=== PATIENT | female | born 1980 | race Caucasian/White ===

== ENCOUNTER 2023-07-12 15:48 | Outpatient (CLI) | payer MEDICAID | END 2023-07-12 23:59 | disposition home or self-care (01) | LOC: RAD 15:48 | PROVIDERS: ATTEND Nurse Practitioner Pediatrics | DX: M19.011 Primary osteoarthritis, right shoulder (principal); M25.511 Pain in right shoulder | CPT/HCPCS: 73030 ==

== ENCOUNTER 2023-10-15 18:00 | Emergency (ER) | payer MEDICAID ==
[~2023-10-15] VITALS: Ht 177.8 cm; Wt 122.5 kg
[2023-10-15 18:35] VITALS: BP 154/85; PULSE 90; RESP 19; O2SAT 96
[2023-10-15 19:39] LABS: STREP A SCREEN NEGATIVE (Neg)
[2023-10-15] MEDS ORDERED: AZIT250T PO (20:24)
[2023-10-15] MEDS ORDERED: PRED20TA PO (20:24)
[2023-10-15] MEDS: dexamethasone sod phosphate 10mg/ml inj PO STA (20:24)
[2023-10-15] MEDS ORDERED: ALBU8HFA INH (20:24)
[2023-10-15 20:35] VITALS: TEMP 97.8
== END 2023-10-15 20:37 | disposition home or self-care (01) ==
LOC: ER 18:00
DX: U07.1 COVID-19 (principal)
CPT/HCPCS: 36415; 87081; 87811; 87880; 99283; J1100

== ENCOUNTER 2024-08-13 05:55 | Outpatient (CLI) | payer MEDICAID ==
[~2024-08-13 05:55] MED LIST: AZIT250T PO
[2024-08-13] MEDS ORDERED: iohexol 300 MG/1 ML 50ml polymer ONE (06:26)
[2024-08-13] MEDS ORDERED: GADOTERATE MEGLUMINE 7.5 MMOL/15 ML VIAL IV ONE (06:26)
[2024-08-13] MEDS ORDERED: LIDOcaine 1%/PF 5ML 10 MG/ML VIAL ONE (06:26)
[2024-08-13] MEDS ORDERED: LIDOcaine 1% 30ml preserv. free vial ONE (06:26)
--- NOTE | 2024-08-13 09:19 | RADIOLOGY REPORT ---
CLINICAL INFORMATION: Right shoulder pain. TECHNIQUE: Multisequence multiplanar MR arthrogram images of the right shoulder were obtained after t he intra-articular injection of dilute gadolinium contrast under fluoroscopic guidance. Refer to the same-day arthrogram injection report for details concerning the contrast injection. COMPARISON: Correlation made to same day arthrogram injection images and prior radiographs dated 06/19. FINDINGS: Acromioclavicular joint: There is mild acromioclavicular hypertrophy and mild edema. There is Type 2 acromion. Small amount of fluid and contrast in the subacromial / subdeltoid bursa. Rotator cuff tendons: Tear of the distal supraspinatus tendon extending to the insertional footprint measuring up to 2 cm in greatest AP dimension and up to 1.6 cm in proximal to distal dimension with f ull-thickness or near full-thickness bursal surface component at the tear of the insertional footprin t and articular surface component at its proximal aspect, with full-thickness communication of contra st extending from the glenohumeral joint to the subacromial/subdeltoid bursa. Subscapularis and teres minor tendons are intact. Biceps tendon: No significant tendinosis. No evidence of attrition or tear. Labrum: Mild fraying of the posterior superior labrum. Bones: No fracture or focal marrow contusion. Muscles: Normal muscle bulk. No atrophy. Other: There is adequate distention of the joint with contrast. No loose bodies or significant synov itis. IMPRESSION: 1. Tear involving the distal supraspinatus tendon with bursal surface and articular surface component s of the tear, and demonstrating full-thickness communication, with contrast extending from the joint into the subacromial/subdeltoid bursa. 2. Mild acromioclavicular hypertrophy. 3. Likely mild fraying of the posterior superior labrum.
--- NOTE | 2024-08-13 09:30 | RADIOLOGY REPORT ---
ANGIO ARTHROGRAM (A) Date: 08/13/2024 07:14 AM Clinical History: PAIN IN RIGHT SHOULDER Comparison: None Procedure: Verbal and written informed consent were obtained from the patient for the procedure of RIGHT SHOULDE R fluoroscopically guided arthrogram, after the procedure, risks, and benefits of the procedure were explained to the patient. Risks include bleeding, infection, reaction to injected medications, and damage to surrounding anatomic structures. The patient's questions were answered. The patient's mos t recent medical history was reviewed. A time out was performed to verify the patient's name, date of , and correct location of the pro cedure, prior to initiation of the procedure. The patient was placed supine on the fluoroscopic table and the area overlying the RIGHT SHOULDER ASHLEY NT was prepped and draped in the usual sterile fashion. Approximately 7 ml of buffered 1% lidocaine were infused for local anesthesia. Under direct fluoroscopic guidance, a 22 gauge spinal needle was advanced percutaneously into the joint. Approximately 10 ml of a mixture of 6 ml of bupivicaine, 5 ml of Omnipaque 300 contrast, and 0.1 ml of gadolinium contrast were injected. A spot film was obtai mt to document placement of the contrast within the joint capsule. The needle was removed. The patient tolerated the procedure well. There were no immediate complications. Home-care instruct ions were reviewed with the patient prior to the patient's discharge from the fluoroscopy suite. The patient verbally affirmed understanding of these instructions. Impression: Technically successful fluoroscopically guided RIGHT SHOULDER JOINT arthrogram. The patient was tra nsported to MRI for further imaging at the completion of the procedure. Procedure by Dr. sam
== END 2024-08-13 23:59 | disposition home or self-care (01) ==
LOC: RAD 05:55
PROVIDERS: ATTEND Pediatrics Sports Medicine
DX: M25.511 Pain in right shoulder (principal); M75.111 Incomplete rotator cuff tear or rupture of right shoulder, not specified as traumatic; Z79.899 Other long term (current) drug therapy
CPT/HCPCS: 23350; 73222; 77002; A9575; J2003; J3490; Q9967